=== PATIENT | male | born 1980 | race Two or more races ===

== ENCOUNTER 2016-10-13 17:11 | Emergency (ER) | payer MEDICAID ==
[~2016-10-13] VITALS: Ht 177.8 cm; Wt 89.8 kg
[~2016-10-13 17:11] MED LIST: HYDROCODON-ACE1 EAC4 ORAL; IBUPROFEN600 MG ORAL; IBUPROFEN600 MG PO; NKM
[2016-10-13] MEDS ORDERED: NKM (17:31)
--- NOTE | 2016-10-13 17:42 | Emergency Room Report ---
History of Present Illness General Chief Complaint: General Complaint Source: Patient Present Illness HPI 36-year-old male presents emergency department complaining of numbness and tingling in the face in addition to the left hand x30 minutes. Patient states that he was drinking heavily last night and upon wakening this afternoon he was arguing with his mother. Patient states that shortly after his symptoms began. Patient denies headache. Patient states that his symptoms are beginning to resolve. Patient also noted numbness and tingling in the feet. he denies history of cardiac problems or high blood pressure. he states the only pertinent family history is diabetes. he also reports heavy breathing and described chest tightness. Denies history of anxiety . Denies Palpitations, LOC, AMS, dizziness, Changes in Vision, Sensation, paresthesias, or a sudden severe headache. Allergies: Coded Allergies: No Known Allergies (Unverified , 07/07/13) Patient History Past Medical History: see triage record Past Surgical History: none Pertinent Family History: none Immunizations: UTD Reviewed Nursing Documentation: PMH: Agreed, PSxH: Agreed Nursing Documentation-PMH Past Medical History: No Stated History Review of Systems All Other Systems: negative except mentioned in HPI Physical Exam Vital Signs Date Time Temp Pulse Resp B/P Pulse Ox O2 Delivery O2 Flow Rate FiO2 10/13/16 17:26 97.9 90 16 151/80 97 Room Air Sp02 EP Interpretation: reviewed, normal General Appearance: no apparent distress, alert, GCS 15, non-toxic Head: normocephalic, atraumatic Eyes: bilateral eye PERRL, bilateral eye normal inspection ENT: hearing grossly normal, normal pharynx, no angioedema, normal voice Neck: full range of motion, supple/symm/no masses Respiratory: chest non-tender, lungs clear, normal breath sounds, speaking full sentences Cardiovascular #1: regular rate, rhythm, no edema, normal capillary refill Cardiovascular #2: 2+ radial (R), 2+ radial (L) Rectal: deferred Musculoskeletal: back normal, gait/station normal, normal range of motion, non- tender, no calf tenderness Neurologic: alert, oriented x3, responsive, motor strength/tone normal, sensory intact, cerebellar normal, normal gait, speech normal, no pronator, other - negative hanley's, equal doughnut maker strength bilaterally. Psychiatric: judgement/insight normal, memory normal, mood/affect normal, no suicidal/homicidal ideation Skin: normal color, no rash, warm/dry, well hydrated Lymphatic: no adenopathy Medical Decision Making PA Attestation Dr. Liang is my supervising Physician whom patient management has been discussed with. Diagnostic Impression: Primary Impression: Acute hyperventilation syndrome ER Course 36-year-old male presents emergency department complaining of numbness and tingling in the face in addition to the left hand x30 minutes. Patient states that he was drinking heavily last night and upon wakening this afternoon he was arguing with his mother. Ddx considered but are not limited to anxiety, hyperventilation, Stroke, VA, PE , asthma, thyroid storm, hyperthyroid, EPS Vital signs: Pt has elevated BP of 151/80, the remaining VS are WNL, pt. is afebrile H&PE are most consistent with hyperventilation syndrome/anxiety, pt. does not have cardiac RF. non-tachycardic, non-tachypneic, NAD. symptoms are beginning to resolve, no focal neurological deficits ORDERS: -EK BPM NSR interpreted by Dr. Liang ED INTERVENTIONS: - 0.5 mg Ativan d/w pt. to follow up with pcp, re-evaluate elevated BP with PCP, return with worsening or new symptoms. DISCHARGE: At this time pt. is stable for d/c to home. Will provide printed patient care instructions, and any necessary prescriptions. Care plan and follow up instructions have been discussed with the patient prior to discharge. EKG Diagnostic Results EP Interpretation: Dr. Liang Rate: normal - 82 Rhythm: NSR ST Segments: no acute changes ASA given to the pt in ED: No PA Scribe Text This EKG was interpreted by Dr. Liang, and I am acting as a scribe. Last Vital Signs Date Time Temp Pulse Resp B/P Pulse Ox O2 Delivery O2 Flow Rate FiO2 10/13/16 17:26 97.9 90 16 151/80 97 Room Air Disposition: HOME, SELF-CARE Condition: Stable Patient Instructions: Hyperventilation Additional Instructions: Take any previously prescribed medications as directed. Follow up with PCP in 3-5 days , your BP today was elevated at 151/80 Return sooner to ED if new symptoms occur, or current symptoms become worse. - Please note that this Emergency Department Report was dictated using [employer] technology software, occasionally this can lead to erroneous entry secondary to interpretation by the dictation equipment. Maida Bowens Oct 13, 2016 17:42
[2016-10-13] MEDS ORDERED: LORazepam 0.5mg tab ORAL ONE (18:00)
[2016-10-13 18:30] VITALS: BP 144/81
--- NOTE | 2016-10-14 21:12 | Cardiology Report ---
APPROVED REPORT EKG Measurement Heart [id number] Normal sinus rhythm with sinus arrhythmia Normal ECG
== END 2016-10-13 18:32 | disposition home or self-care (01) ==
LOC: EMR 17:40
DX: F45.8 Other somatoform disorders (principal); R20.2 Paresthesia of skin; R20.0 Anesthesia of skin
CPT/HCPCS: 93005; 99283